=== PATIENT | male | born 1985 | race Caucasian/White ===

== ENCOUNTER 2017-12-20 05:41 | Emergency (ER) | payer SELFPAY ==
[~2017-12-20] VITALS: Ht 177.8 cm; Wt 72.6 kg
[2017-12-20 05:41] VITALS: BP 135/79
== END 2017-12-20 06:41 | disposition home or self-care (01) ==
LOC: ER 05:44
DX: H57.89 Other specified disorders of eye and adnexa (principal); Z87.19 Personal history of other diseases of the digestive system
CPT/HCPCS: 99283; A4606; Z7610

== ENCOUNTER 2017-12-20 08:08 | Emergency (ER) | payer SELFPAY ==
[~2017-12-20] VITALS: Ht 175.3 cm; Wt 72.6 kg
[2017-12-20 08:19] VITALS: BP 129/91
== END 2017-12-20 08:39 | disposition home or self-care (01) ==
LOC: ER 08:09
DX: R04.0 Epistaxis (principal); Z87.19 Personal history of other diseases of the digestive system
CPT/HCPCS: 99281; A4606; Z7610; Z7502